=== PATIENT | male | born 1955 | race Caucasian/White ===

== ENCOUNTER → 2016-09-25 | Outpatient (CLI) | payer OTHER | END | disposition home or self-care (01) | LOC: CFH 08:43 | PROVIDERS: ATTEND Internal Medicine | DX: M48.06 Spinal stenosis, lumbar region (principal); M47.892 Other spondylosis, cervical region; I65.22 Occlusion and stenosis of left carotid artery; R55 Syncope and collapse; R42 Dizziness and giddiness | CPT/HCPCS: 72050; 93880 ==

== ENCOUNTER 2016-10-11 11:15 | Emergency (ER) | payer OTHER ==
[~2016-10-11] VITALS: Ht 175.3 cm; Wt 77.4 kg
[2016-10-11 11:17] VITALS: BP 179/98
[2016-10-11] MEDS ORDERED: RABIES VACCINE /PF 2.5 UNITS IM-VACC ONE (12:00)
[2016-10-11] MEDS ORDERED: RABIES IMMUNE GLOBULIN/PF 150 UNITS/ML, 2ML IM ONE (12:00)
== END 2016-10-11 12:54 | disposition home or self-care (01) ==
LOC: ED 12:53
DX: Z20.3 Contact with and (suspected) exposure to rabies (principal)
CPT/HCPCS: 90375; 90471; 90675; 96372

== ENCOUNTER 2016-10-14 08:53 | Emergency (ER) | payer OTHER ==
[~2016-10-14] VITALS: Ht 175.3 cm; Wt 77.7 kg
[2016-10-14 08:54] VITALS: BP 147/75
[2016-10-14] MEDS ORDERED: RABIES VACCINE /PF 2.5 UNITS IM-VACC ONE (09:30)
== END 2016-10-14 09:55 | disposition home or self-care (01) ==
LOC: ED 09:47
DX: Z23 Encounter for immunization (principal)
CPT/HCPCS: 90471; 90675

== ENCOUNTER 2016-10-18 07:12 | Emergency (ER) | payer OTHER ==
[~2016-10-18] VITALS: Ht 175.3 cm; Wt 77.4 kg
[2016-10-18 07:14] VITALS: BP 126/80
[2016-10-18] MEDS ORDERED: RABIES VACCINE /PF 2.5 UNITS IM-VACC ONE (07:30)
== END 2016-10-18 08:05 | disposition home or self-care (01) ==
LOC: ED 07:59
DX: Z23 Encounter for immunization (principal)
CPT/HCPCS: 90471; 90675

== ENCOUNTER 2016-10-25 06:59 | Emergency (ER) | payer OTHER ==
[~2016-10-25] VITALS: Ht 175.3 cm; Wt 76.5 kg
[2016-10-25 07:00] VITALS: BP 144/81
[2016-10-25] MEDS ORDERED: RABIES VACCINE /PF 2.5 UNITS IM-VACC ONE (07:30)
== END 2016-10-25 07:46 | disposition home or self-care (01) ==
LOC: ED 07:17
DX: Z23 Encounter for immunization (principal)
CPT/HCPCS: 90471; 90675

== ENCOUNTER 2016-11-08 08:01 | Emergency (ER) | payer OTHER ==
[~2016-11-08] VITALS: Ht 175.3 cm; Wt 76.0 kg
[2016-11-08] MEDS ORDERED: RABIES VACCINE /PF 2.5 UNITS IM-VACC ONE (09:00)
[2016-11-08 10:04] VITALS: BP 136/72
== END 2016-11-08 10:07 | disposition home or self-care (01) ==
LOC: ED 08:16
DX: Z20.3 Contact with and (suspected) exposure to rabies (principal)
CPT/HCPCS: 90471; 90675